=== PATIENT | female | born 1990 | race Caucasian/White ===

== ENCOUNTER 2017-10-14 21:41 | Emergency (ER) | payer OTHER ==
[~2017-10-14] VITALS: Ht 157.5 cm; Wt 52.3 kg
[~2017-10-14 21:41] MED LIST: ASCO500 PO; DSS100 PO; FERR-72 PO; IBUP-2070 PO; PREN1TAB80 PO
[2017-10-14] MEDS ORDERED: AMOX400S5 PO (22:08)
[2017-10-15 00:25] VITALS: BP 121/78
== END 2017-10-15 00:58 | disposition home or self-care (01) ==
LOC: EMS 21:52
DX: F41.9 Anxiety disorder, unspecified (principal); T36.0X5A Adverse effect of penicillins, initial encounter; J02.9 Acute pharyngitis, unspecified; H92.09 Otalgia, unspecified ear; Y92.89 Other specified places as the place of occurrence of the external cause
CPT/HCPCS: 99281

== ENCOUNTER 2018-06-14 12:28 | Emergency (ER) | payer OTHER ==
[~2018-06-14] VITALS: Ht 157.5 cm; Wt 59.1 kg
[~2018-06-14 12:28] MED LIST changes: +AMOX400S5 PO; -ASCO500 PO; -DSS100 PO; -FERR-72 PO; -IBUP-2070 PO; -PREN1TAB80 PO
[2018-06-14 12:44] VITALS: BP 136/94
[2018-06-14] MEDS ORDERED: ONDANSETRON HCL 4 MG TABLET PO ONE (12:45)
[2018-06-14] MEDS ORDERED: OxyCODONE HCL/ACETAMINOPHEN 5-325 MG TABLET PO ONE (12:45)
== END 2018-06-14 13:05 | disposition home or self-care (01) ==
LOC: EMS 12:28
DX: K08.89 Other specified disorders of teeth and supporting structures (principal)
CPT/HCPCS: 99283; Q0162

== ENCOUNTER 2019-05-05 17:30 | Emergency (ER) | payer SELFPAY ==
[~2019-05-05] VITALS: Ht 157.5 cm; Wt 56.8 kg
[2019-05-05] MEDS ORDERED: BENZONATATE 100 MG CAPSULE PO ONE (20:15)
[2019-05-05 20:18] VITALS: BP 140/80
[2019-05-05] MEDS ORDERED: ALBUTEROL SULFATE HFA 90 MCG/PUFF 8 GM INHALER IH ONE (20:45)
== END 2019-05-05 21:37 | disposition home or self-care (01) ==
LOC: EMS 17:35
DX: J84.9 Interstitial pulmonary disease, unspecified (principal); J45.909 Unspecified asthma, uncomplicated
CPT/HCPCS: 93005; 94640; J3535

== ENCOUNTER 2020-11-09 20:24 | Emergency (ER) | payer OTHER ==
[~2020-11-09] VITALS: Ht 157.5 cm; Wt 53.6 kg
[2020-11-09 21:47] LABS: BASOPHILS % (AUTO) 0.4 % (0.0-2.0); EOSINOPHILS % (AUTO) 3.1 % (1.0-6.0); HEMOGLOBIN 13.7 g/dL (12.0-16.0); LYMPHOCYTES # (AUTO) 4.2 K/uL (1.0-4.8); LYMPHOCYTES % (AUTO) 38.1 % (22.0-44.0); MEAN CORPUSCULAR HEMOGLOBIN 31.5 pg (26.0-34.0); MEAN CORPUSCULAR HGB CONC 32.5 G/dL (31.0-37.0); MEAN CORPUSCULAR VOLUME 97 fL (80-100); MONOCYTES # (AUTO) 0.9 K/uL (0.1-1.0); MONOCYTES % (AUTO) 8.6 % (2.0-9.0); NEUTROPHILS # (AUTO) 5.5 K/uL (1.8-7.7); NEUTROPHILS % (AUTO) 49.8 % (40.0-70.0); RED BLOOD CELL COUNT(AUTO) 4.34 MIL/uL (4.00-5.20); RED CELL DISTRIBUTION WIDTH 13.1 % (11.5-14.5)
[2020-11-09 21:50] LABS: ANION GAP 12 mmol/L (8-16); CALCIUM, TOTAL 8.8 mg/dL (8.8-10.5); CARBON DIOXIDE 26 mmol/L (22-29); CHLORIDE 100 mmol/L (98-107); CREATININE 0.96 mg/dL (0.60-1.30); GLOMERULAR FILTR. RATE CALC > 60 mL/min (>60); GLUCOSE,RANDOM 93 mg/dL (70-110); POTASSIUM 3.8 mmol/L (3.5-5.1); SODIUM SERUM 138 mmol/L (136-145); UREA NITROGEN, BLOOD 9 mg/dL (7-18)
[2020-11-09 22:06] LABS: ALANINE AMINOTRANSFERASE 17 U/L (12-78); ALBUMIN 3.9 g/dL (3.4-5.0); ALKALINE PHOSPHATASE 82 U/L (46-116); ASPARTATE AMINOTRANSFERASE 14 U/L (15-37); BILIRUBIN,TOTAL 0.3 mg/dL (0.1-1.0); HCG,QUANTITATIVE < 1 mIU/mL (0-6); TOTAL PROTEIN, SERUM 6.9 g/dL (6.4-8.2)
[2020-11-09 23:16] LABS: PLATELET COUNT (AUTO) 198 K/uL (150-450)
[2020-11-09 23:17] LABS: PLATELET MORPHOLOGY COMMENT GIANT PLTS PRESENT
[2020-11-09] MEDS ORDERED: IBUPROFEN 800 MG TABLET PO ONE (23:45)
[2020-11-10 01:25] VITALS: BP 122/76
== END 2020-11-10 02:29 | disposition left against medical advice (07) ==
LOC: EMS 20:24
DX: N92.0 Excessive and frequent menstruation with regular cycle (principal); N83.201 Unspecified ovarian cyst, right side; J45.909 Unspecified asthma, uncomplicated
CPT/HCPCS: 76830; 76856; 80053; 84702; 85025; 86850; 86900; 86901; 99284; 99285